=== PATIENT | male | born 1945 | race Two or more races ===

== ENCOUNTER 2019-01-17 02:29 | Emergency (ER) | payer OTHER ==
[~2019-01-17] VITALS: Ht 180.3 cm; Wt 113.4 kg
[2019-01-17 03:19] LABS: Urine Bacteria NONE SEEN /hpf (None Seen); Urine Blood TRACE /uL (Negative); Urine Specific Gravity 1.008 (1.001-1.035); Urine WBC <1 /hpf (0 - 3)
[2019-01-17 03:28] LABS: Albumin 3.5 g/dL (3.4-5.0); Anion Gap 8 (5-15); BUN/Creatinine Ratio 15.5; Blood Urea Nitrogen 18 mg/dL (7-18); Calcium 8.7 mg/dL (8.5-10.1); Carbon Dioxide 25 mmol/L (21-32); Chloride 109 mmol/L (98-107); GFR African American 79 mL/min; GFR Non-African American 65 mL/min; Glucose 80 mg/dL (74-106); INR 1.02 (0.9-1.15); Magnesium 2.1 mg/dL (1.6-2.6); Partial Thromboplastin Time 30.9 sec (23.64-32.05); Potassium 3.2 mmol/L (3.5-5.1); Sodium 142 mmol/L (136-145)
[2019-01-17 03:31] LABS: Basophils # (auto) 0.1 uL; Basophils % (auto) 1.3 % (0.0-2.0); Eosinophils # (auto) 0.1 uL; Hematocrit 41.1 % (41.0-53.0); Hemoglobin 13.9 g/dL (13.5-17.5); Lymphocytes % (auto) 15.9 % (10.0-50.0); Mean Corpuscular Hemoglobin 31.7 pg (28.0-32.0); Mean Corpuscular Hgb Conc. 33.8 g/dL (32.0-36.0); Monocytes # (auto) 0.4 uL; Monocytes % (auto) 5.5 % (0.0-12.0); Neutrophils # (auto) 4.9 uL; Neutrophils % (auto) 76.3 % (37.0-80.0); Platelet Count (auto) 141 10^3/uL (140-450); Red Blood Cells 4.37 10^6/uL (4.5-5.90); Red Cell Distribution Width 14.1 % (11.8-14.3); White Blood Cell 6.5 10^3/uL (4.4-10.8)
[2019-01-17 03:33] LABS: Alanine Aminotransferase 24 U/L (16-61); Alkaline Phosphatase 51 U/L (45-117); Aspartate Aminotransferase 26 U/L (15-37); Bilirubin, Total 0.2 mg/dL (0.2-1.0); Total Protein 6.9 g/dL (6.4-8.2)
[2019-01-17] MEDS ORDERED: POTASSIUM CHL 20 Meq TABLET PO ONE (04:45)
[2019-01-17 05:01] VITALS: BP 141/81
== END 2019-01-17 05:21 | disposition home or self-care (01) ==
LOC: EDBD 02:29 → ER 02:29
DX: E11.649 Type 2 diabetes mellitus with hypoglycemia without coma (principal); R41.82 Altered mental status, unspecified; E87.6 Hypokalemia; E78.5 Hyperlipidemia, unspecified; I10 Essential (primary) hypertension; I48.91 Unspecified atrial fibrillation
CPT/HCPCS: 36415; 80053; 81001; 82962; 83735; 83880; 84484; 85025; 85610; 85730

== ENCOUNTER 2019-01-28 18:55 | Emergency (ER) | payer OTHER ==
[~2019-01-28] VITALS: Ht 160 cm; Wt 93.0 kg
[2019-01-28 20:30] LABS: Basophils # (auto) 0 uL; Basophils % (auto) 0.4 % (0.0-2.0); Eosinophils # (auto) 0 uL; Hematocrit 39.8 % (41.0-53.0); Hemoglobin 13.3 g/dL (13.5-17.5); Lymphocytes # (auto) 0.5 uL; Lymphocytes % (auto) 4.7 % (10.0-50.0); Mean Corpuscular Hemoglobin 31.2 pg (28.0-32.0); Mean Corpuscular Hgb Conc. 33.3 g/dL (32.0-36.0); Mean Corpuscular Volume 93.7 fL (80.0-100.0); Monocytes # (auto) 0.2 uL; Monocytes % (auto) 1.6 % (0.0-12.0); Neutrophils # (auto) 10.7 uL; Neutrophils % (auto) 93.3 % (37.0-80.0); Platelet Count (auto) 184 10^3/uL (140-450); Red Blood Cells 4.25 10^6/uL (4.5-5.90); Red Cell Distribution Width 13.7 % (11.8-14.3); White Blood Cell 11.4 10^3/uL (4.4-10.8)
[2019-01-28 20:34] LABS: INR 1.17 (0.9-1.15); Partial Thromboplastin Time 31.8 sec (23.64-32.05)
[2019-01-28 20:39] LABS: Alanine Aminotransferase 21 U/L (16-61); Albumin 3.5 g/dL (3.4-5.0); Anion Gap 10 (5-15); Aspartate Aminotransferase 20 U/L (15-37); Blood Urea Nitrogen 25 mg/dL (7-18); Calcium 8.2 mg/dL (8.5-10.1); Carbon Dioxide 23 mmol/L (21-32); Chloride 105 mmol/L (98-107); GFR African American 56 mL/min; GFR Non-African American 46 mL/min; Glucose 206 mg/dL (74-106); Potassium 3.3 mmol/L (3.5-5.1); Sodium 138 mmol/L (136-145)
[2019-01-28 20:51] LABS: Alkaline Phosphatase 60 U/L (45-117); Bilirubin, Total 0.8 mg/dL (0.2-1.0); Total Protein 6.7 g/dL (6.4-8.2)
[2019-01-29 03:25] VITALS: BP 120/57
== END 2019-01-29 03:22 | disposition home or self-care (01) ==
LOC: EDBD 18:55 → ER 18:57
DX: I48.91 Unspecified atrial fibrillation (principal); N28.9 Disorder of kidney and ureter, unspecified; I11.0 Hypertensive heart disease with heart failure; I50.9 Heart failure, unspecified; E78.5 Hyperlipidemia, unspecified; Z91.041 Radiographic dye allergy status
CPT/HCPCS: 36415; 71045; 80053; 83880; 84484; 85025; 85610; 85730; 93005

== ENCOUNTER 2024-06-19 12:57 | Emergency (ER) | payer OTHER ==
[~2024-06-19] VITALS: Ht 165.1 cm; Wt 68.2 kg
[2024-06-19 13:04] VITALS: BP 139/89; RESP 18; O2SAT 98
[2024-06-19 13:14] VITALS: PULSE 90
--- NOTE | 2024-06-19 13:42 | ECG ---
[facility] Test Date: 2024-06-19 Test Time: 13:14:35 Pat Name: GRACE CORTEZ Department: er Room: Gender: M Puller Machine: janeth : 1945 Requested By: JOHN CAZARES Order Number: [id number] Reading MD: Measurements Intervals Blair Rate: 90 P: 0 ME: 0 QRS: -76 QRSD: 126 T: 41 QT: 420 QTc: 514 Interpretive Statements Atrial fibrillation Nonspecific IVCD with LAD Borderline T abnormalities, anterior leads Please click the below link to view image of tracing.
--- NOTE | 2024-06-19 13:47 | DVH ---
CHEST RADIOGRAPH Indication: chest pain Technique: Single frontal view of the chest was obtained COMPARISON: None FINDINGS: Lines and Tubes: None Lungs: Clear Pleura: No effusion. No pneumothorax. Cardiomediastinal contours: Mild cardiomegaly Bones: Unremarkable IMPRESSION: 1. Mild cardiomegaly
--- NOTE | 2024-06-19 13:50 | ED.PDOC ---
Back pain HPI HPI Comments 79y M who presents to the ED for chief complaint of upper extremity pain. Pt states she has been having R shoulder pain. Pt states she has been having R shoulder pain for the past 3 days getting worse with pain getting worse as pain has been exacerbated while lifting his shoulder. Pt states this AM, he noticed the pain radiating to the R side of his sternum and called EMS to the scene. EMS arrived on scene and EMS states vitals were stable and and IV was established and pt given IV fluids and pain meds and brought to the ED. Pt in the ED, otherwise denies any fall or trauma. Pt denies any other symptoms at this time. 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 Allergies: Coded Allergies: Iodine I 131 Tositumomab (Verified Allergy, Unknown, 01/17/19) Information Source: Patient Mode of Arrival: EMS Brought in by: EMS Past Medical History PAST MEDICAL HISTORY: AFIB, DM, High Lipids, HTN Surgical History: PTCA, Tonsillectomy Family History Family History: Unknown Social History Smoker: Non-Smoker Alcohol: Denies ETOH Use Drugs: Denies Drug Use Lives In: Home Constitutional: denies: chills, diaphoresis, fatigue, fever, malaise, sweats, weakness, others EENTM: denies: blurred vision, double vision, ear bleeding, ear discharge, ear drainage, ear pain, ear ringing, eye pain, eye redness, hearing loss, mouth pain, mouth swelling, nasal discharge, nose bleeding, nose congestion, nose pain, photophobia, tearing, throat pain, throat swelling, voice changes, others Respiratory: denies: cough, hemoptysis, orthopnea, SOB at rest, shortness of breath, SOB with excertion, stridor, wheezing, others Cardiovascular: denies: chest pain, dizzy spells, diaphoresis, Dyspnea on exertion, edema, irregular heart beat, left arm pain, lightheadedness, palp itations, PND, syncope, others Gastrointestinal: denies: abdomen distended, abdominal pain, blood streaked bowels, constipated, diarrhea, dysphagia, difficulty swallowing, hematemesis, melena, nausea, poor appetite, poor fluid intake, rectal bleeding, rectal pain, vomiting, others Genitourinary: denies: burning, dysuria, flank pain, frequency, hematuria, incontinence, penile discharge, penile sore, pain, testicle pain, testicle swelling, urgency, others Neurological: denies: dizziness, fainting, headache, left sided numbness, left sided weakness, numbness, paresthesia, pre-existing deficit, right sided numbness, right sided weakness, seizure, speech problems, tingling, tremors, weakness, others Musculoskeletal: reports: joint pain; denies: back pain, gout, joint swelling, muscle pain, muscle stiffness, neck pain, others Integumetry: denies: bruises, change in color, change in hair/nails, dryness, laceration, lesions, lumps, rash, wounds, others Allergic/Immunocompromised: denies: Difficulty Healing, Frequent Infections, Hives, Itching, others Hematologic/Lymphatic: denies: anemia, blood clots, easy bleeding, easy bruising, swollen glands, others Endocrine: denies: excessive hunger, excessive sweating, excessive thirst, excessive urination, flushing, intolerance to cold, intolerance to heat, unexplained weight gain, unexplained weight loss, others Psychiatric: denies: anxiety, bipolar disorder, depression, hopeless, panic disorder, schizophrenia, sleepless, suicidal, others All Other Systems: Reviewed and Negative Physical Exam General Appearance: Mild Distress, Normal HEENT: Normal ENT Inspection, Pharynx Normal, TMs Normal Neck: Full Range of Motion, Non-Tender, Normal, Normal Inspection Respiratory: Chest Non-Tender, Lungs Clear, No Accessory Muscle Use, No Respiratory Distress, Normal Breath Sounds Cardiovascular: No Edema, No JVD, No Murmur, No Gallop, Normal Peripheral Pulses, Regular Rate/Rhythm Breast Exam: Deferred Gastrointestinal: No Organomegaly, Non Tender, No Pulsatile Mass, Normal Bowel Sounds, Soft Genitalia: Deferred Pelvic: Deferred Rectal: Deferred Extremities: Tender (left shoulder) Musculoskeletal : Apperance: Normal Neurologic: Alert, 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 Was a procedure done?: No Back Pain Differential Dx Differential Diagnosis: Fracture, Musculoskeletal Pain Other Differential Diagnosis chest wall pain, muslce spasm, strain, dislocation, arthritis X-Ray, Labs, Meds, VS Vital Signs Date Time Temp Pulse Resp B/P (MAP) Pulse Ox O2 Delivery O2 Flow Rate FiO2 06/19/24 13:14 90 06/19/24 13:05 Room Air* 0 21 06/19/24 13:04 98.0 91 18 139/89 (106) 98 Lab Test 06/19/24 14:53 06/19/24 13:37 Range/Units Troponin I High Sensitivity 4 4 </=54 ng/L White Blood Count 7.4 4.4-10.8 10^3/uL Red Blood Count 4.74 4.5-5.90 10^6/uL Hemoglobin 14.9 13.5-17.5 g/dL Hematocrit 44.3 41.0-53.0 % Mean Corpuscular Volume 93.5 80.0-100.0 fL Mean Corpuscular Hemoglobin 31.3 28.0-32.0 pg Mean Corpuscular Hemoglobin Concent 33.5 32.0-36.0 g/dL Red Cell Distribution Width 14.2 11.8-14.3 % Platelet Count 181 140-450 10^3/uL Mean Platelet Volume 9.2 6.9-10.8 fL Neutrophils (%) (Auto) 68.6 37.0-80.0 % Lymphocytes (%) (Auto) 22.5 10.0-50.0 % Monocytes (%) (Auto) 6.2 0.0-12.0 % Eosinophils (%) (Auto) 1.2 0.0-7.0 % Basophils (%) (Auto) 1.5 0.0-2.0 % Neutrophils # (Auto) 5.1 1.6-8.6 10 ^3/uL Lymphocytes # (Auto) 1.7 0.4-5.4 10 ^3/uL Monocytes # (Auto) 0.5 0-1.3 10 ^3/uL Eosinophils # (Auto) 0.1 0-0.8 10 ^3/uL Basophils # (Auto) 0.1 0-0.2 10 ^3/uL Nucleated Red Blood Cells 0.1 % Prothrombin Time 13.2 H 9.3-11.8 sec Prothrombin Time INR 1.28 H 0.9-1.15 Activated Partial Thromboplast Time 43.2 H 24.5-34.5 SEC Sodium Level 141 136-145 mmol/L Potassium Level 4.3 3.5-5.1 mmol/L Chloride Level 105 98-107 mmol/L Carbon Dioxide Level 31 20-31 mmol/L Anion Gap 5 5-15 Blood Urea Nitrogen 19 9-23 mg/dL Creatinine 1.44 H 0.700-1.30 mg/dL Glomerular Filtration Rate Calc 49 >90 mL/min BUN/Creatinine Ratio 13.2 10.0-20.0 Serum Glucose 185 H 74-106 mg/dL Calcium Level 9.4 8.7-10.4 mg/dL Total Bilirubin 0.8 0.2-1.0 mg/dL Aspartate Amino Transferase (AST) 28 13-40 U/L Alanine Aminotransferase (ALT) 21 7-40 U/L Alkaline Phosphatase 85 46-116 U/L B-Type Natriuretic Peptide 171.97 0-100 pg/mL Total Protein 6.6 5.7-8.2 g/dL Albumin 4.1 3.2-4.8 g/dL [place] [address] Ph: [phone] DIAGNOSTIC IMAGING Diagnostic Imaging Report : [id number] Signed PATIENT: GRACE CORTEZ ACCT: [id number] UNIT: [id number] : 1945 LOC: ER ROOM / BED: / AGE / SEX: 79 / M ADM STATUS: REG ER SERVICE 1314 ORDERING PHYSICIAN: JOHN CAZARES MD PROCEDURE(s): CXRP - CHEST PORTABLE REASON: chest pain ORDER NUMBER(s): [id number], ACCESSION NUMBER(s): [id number] CHEST RADIOGRAPH Indication: chest pain Technique: Single frontal view of the chest was obtained COMPARISON: None FINDINGS: Lines and Tubes: None Lungs: Clear Pleura: No effusion. No pneumothorax. Cardiomediastinal contours: Mild cardiomegaly Bones: Unremarkable IMPRESSION: 1. Mild cardiomegaly ATED BY: KENIA YEPEZ MD DICTATED DATE/TIME: 06/19/241343 SIGNED BY: KENIA YEPEZ MD SIGNED DATE/TIME: 06/19/24 134 CC: [place] [id number] Ph: [phone] DIAGNOSTIC IMAGING Diagnostic Imaging Report : [id number] Signed PATIENT: GRACE CORTEZ ACCT: [id number] UNIT: [id number] : 1945 LOC: ER ROOM / BED: / AGE / SEX: 79 / M ADM STATUS: REG ER SERVICE 1314 ORDERING PHYSICIAN: JOHN CAZARES MD PROCEDURE(s): RSHD2 - R SHOULDER 2+ VIEW XRAY REASON: pain no trauma ORDER NUMBER(s): [id number], ACCESSION NUMBER(s): [id number] CLINICAL INDICATION: pain no trauma TECHNIQUE: XY R SHOULDER 2+ VIEW XRAY Comparison: None FINDINGS/IMPRESSION: : There are small calcifications adjacent to the humeral head suggestive of calcific tendonitis. No fracture No dislocation Degenerative changes of the acromioclavicular joint Impression: Findings suggestive of calcific tendonitis ATED BY: KENIA YEPEZ MD DICTATED DATE/TIME: 06/19/24 134 SIGNED BY: KENIA YEPEZ MD SIGNED DATE/TIME: 06/19/24 134 CC: Time of 1ST Reevaluation: 14:20 Reevaluation 1ST: Unchanged Time of 2ND Reevaluation: 15:00 Reevaluation 2ND: Improved Patient Education/Counseling: Diagnosis, Treatment Family Education/Counseling: No Family Present Departure 1 Departure Time of Disposition: 15:00 Impression: Primary Impression: Atypical chest pain Additional Impression: Left shoulder tendonitis Disposition: 01 HOME / SELF CARE / HOMELESS Condition: Stable Discharged With: Self Critical Care Note Critical Care Time?: No Stability Stability form required: No Heart Score Heart Score: Heart Score Response (Comments) Value History Slightly Suspicious 0 EKG Normal 0 Age >65 2 Risk Factors 1 or 2 risk factors 1 Troponin Normal limit 0 Total 3 I personally scribed for JOHN CAZARES MD ([email or web address]) on 06/19/24 at 13:50. Electronically submitted by Annalisa Garibay ([email or web address]). I personally scribed for JOHN CAZARES MD ([email or web address]) on 06/19/24 at 13:52. Electronically submitted by Annalisa Garibay ([email or web address]). JOHN CAZARES MD Jun 19, 2024 13:50
[2024-06-19 14:04] LABS: Basophils # (auto) 0.1 10 ^3/uL (0-0.2); Basophils % (auto) 1.5 % (0.0-2.0); Eosinophils # (auto) 0.1 10 ^3/uL (0-0.8); Eosinophils % (auto) 1.2 % (0.0-7.0); Hematocrit 44.3 % (41.0-53.0); Hemoglobin 14.9 g/dL (13.5-17.5); Lymphocytes # (auto) 1.7 10 ^3/uL (0.4-5.4); Lymphocytes % (auto) 22.5 % (10.0-50.0); Mean Corpuscular Hemoglobin 31.3 pg (28.0-32.0); Mean Corpuscular Hgb Conc. 33.5 g/dL (32.0-36.0); Mean Corpuscular Volume 93.5 fL (80.0-100.0); Monocytes # (auto) 0.5 10 ^3/uL (0-1.3); Monocytes % (auto) 6.2 % (0.0-12.0); Neutrophils # (auto) 5.1 10 ^3/uL (1.6-8.6); Neutrophils % (auto) 68.6 % (37.0-80.0); Nucleated Red Blood Cells % 0.1 %; Platelet Count (auto) 181 10^3/uL (140-450); Red Blood Cells 4.74 10^6/uL (4.5-5.90); Red Cell Distribution Width 14.2 % (11.8-14.3); White Blood Cell 7.4 10^3/uL (4.4-10.8)
[2024-06-19 14:17] LABS: INR 1.28 (0.9-1.15); Partial Thromboplastin Time 43.2 SEC (24.5-34.5); Prothrombin Time 13.2 sec (9.3-11.8)
[2024-06-19 14:34] LABS: Alanine Aminotransferase 21 U/L (7-40); Albumin 4.1 g/dL (3.2-4.8); Alkaline Phosphatase 85 U/L (46-116); Anion Gap 5 (5-15); Aspartate Aminotransferase 28 U/L (13-40); BUN/Creatinine Ratio 13.2 (10.0-20.0); Bilirubin, Total 0.8 mg/dL (0.2-1.0); Blood Urea Nitrogen 19 mg/dL (9-23); Calcium 9.4 mg/dL (8.7-10.4); Carbon Dioxide 31 mmol/L (20-31); Chloride 105 mmol/L (98-107); Potassium 4.3 mmol/L (3.5-5.1); Sodium 141 mmol/L (136-145); Total Protein 6.6 g/dL (5.7-8.2)
[2024-06-19 14:38] LABS: Glucose 185 mg/dL (74-106)
== END 2024-06-19 16:36 | disposition home or self-care (01) ==
LOC: EDBD 12:57 → ER 12:57
DX: M77.8 Other enthesopathies, not elsewhere classified (principal); R07.89 Other chest pain; E11.9 Type 2 diabetes mellitus without complications; E78.5 Hyperlipidemia, unspecified; I10 Essential (primary) hypertension; Z98.890 Other specified postprocedural states; Z88.8 Allergy status to other drugs, medicaments and biological substances
CPT/HCPCS: 36415; 71045; 73030; 80053; 83880; 84484; 85025; 85610; 85730; 93005

== ENCOUNTER 2025-02-23 01:48 | Inpatient (IN) | payer OTHER ==
[~2025-02-23] VITALS: Ht 167.6 cm; Wt 109.0 kg
--- NOTE | 2025-02-23 02:05 | ED.PDOC ---
Altered Mental Status HPI Comments 79-year-old male who came to ER via EMS for hypoglycemia/altered level of consciousness. Per EMS, patient has history of hypertension and diabetes. Takes insulin for his diabetes. Was noted by family members that patient has been acting altered, confused, diaphoretic. Paramedics came noted blood sugar levels of 37 so patient was given fluids and it improved to 154. 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 Allergies: Coded Allergies: Iodine I 131 Tositumomab (Verified Allergy, Unknown, 01/17/19) Information Source: Patient, Emergency Med Personnel Mode of Arrival: EMS Severity: Severe, Unable to Care for Self Timing: Hours Duration: Since onset Prehospital treatment: IVF Quality: Decreased Alertness, Change in Behavior, Confusion Recent: Medication/Drug Abuse History of: Diabetes, On Insulin Past Medical History PAST MEDICAL HISTORY: AFIB, DM, High Lipids, HTN Surgical History: PTCA, Tonsillectomy Family History Family History: Pt Confused Social History Smoker: Pt Confused Alcohol: Pt Confused Drugs: Pt Confused Lives In: Home Unable to Obtain due to: Altered Mental Status (Hypoglycemic) Physical Exam General Appearance: No Apparent Distress, Normal HEENT: Normal ENT Inspection, Pharynx Normal, TMs Normal Neck: Full Range of Motion, Non-Tender, Normal, Normal Inspection Respiratory: Chest Non-Tender, Lungs Clear, No Accessory Muscle Use, No Respiratory Distress, Normal Breath Sounds Cardiovascular: No Edema, No JVD, No Murmur, No Gallop, Normal Peripheral Pulses, Regular Rate/Rhythm Breast Exam: Deferred Gastrointestinal: No Organomegaly, Non Tender, No Pulsatile Mass, Normal Bowel Sounds, Soft Genitalia: Deferred Pelvic: Deferred Rectal: Deferred Extremities: No calf tenderness, Normal capillary refill, Normal inspection, Normal range of motion, Non-tender, No pedal edema Musculoskeletal : Apperance: Normal Neurologic: Alert, hoistman II-XII nml as Tested, No Motor Deficits, Normal Affect, Normal Mood, No Sensory Deficits Cerebellar Function: Normal Reflexes: Normal Skin: Dry, Normal Color, Warm Lymphatic: No Adenopathy EKG EKG : Pulse Rate (adult): 46 Cardiac Rhythm: Afib Comments Left anterior fascicular block Was a procedure done? Was a procedure done?: No Differential Diagnosis (ALOC) Differential Diagnosis: Hypoglycemia, Encephalopathy, Hypoxemia, CVA X-Ray, Labs, Meds, VS Vital Signs Date Time Temp Pulse Resp B/P (MAP) Pulse Ox O2 Delivery O2 Flow Rate FiO2 02/23/25 02:31 61 10 96 Room Air* 0 21 02/23/25 02:31 97.7 61 10 136/72 (93) 96 97.7 02/23/25 02:05 46 02/23/25 01:57 97.7 63 20 110/51 95 97.7 02/23/25 01:53 46 Lab Test 02/23/25 02:46 02/23/25 02:43 02/23/25 02:10 Range/Units POC Glucose 100 70-106 mg/dl Urine Color Pending Urine Clarity Pending Urine pH Pending Urine Specific [place] Pending Urine Protein Pending Urine Ketones Pending Urine Blood Pending Urine Nitrite Pending Urine Bilirubin Pending Urine Urobilinogen Pending Urine Leukocyte Esterase Pending Urine RBC Pending Urine Microscopic WBC Pending Urine Squamous Epithelial Cells Pending Urine Bacteria Pending Urine Glucose Pending Urine Opiates Screen Neg NEGATIVE Urine Fentanyl Screen Neg NEGATIVE Urine Barbiturates Screen Neg NEGATIVE Urine Phencyclidine Screen Neg NEGATIVE Urine Amphetamines Screen Neg NEGATIVE Urine Benzodiazepines Screen Neg NEGATIVE Urine Cocaine Screen Neg NEGATIVE Urine Cannabinoids Screen Neg NEGATIVE White Blood Count 6.6 4.4-10.8 10^3/uL Red Blood Count 4.42 L 4.5-5.90 10^6/uL Hemoglobin 14.0 13.5-17.5 g/dL Hematocrit 41.5 41.0-53.0 % Mean Corpuscular Volume 93.8 80.0-100.0 fL Mean Corpuscular Hemoglobin 31.6 28.0-32.0 pg Mean Corpuscular Hemoglobin Concent 33.6 32.0-36.0 g/dL Red Cell Distribution Width 13.9 11.8-14.3 % Platelet Count 176 140-450 10^3/uL Mean Platelet Volume 9.2 6.9-10.8 fL Neutrophils (%) (Auto) 64.3 37.0-80.0 % Lymphocytes (%) (Auto) 26.3 10.0-50.0 % Monocytes (%) (Auto) 7.1 0.0-12.0 % Eosinophils (%) (Auto) 1.3 0.0-7.0 % Basophils (%) (Auto) 1.0 0.0-2.0 % Neutrophils # (Auto) 4.2 1.6-8.6 10 ^3/uL Lymphocytes # (Auto) 1.7 0.4-5.4 10 ^3/uL Monocytes # (Auto) 0.5 0-1.3 10 ^3/uL Eosinophils # (Auto) 0.1 0-0.8 10 ^3/uL Basophils # (Auto) 0.1 0-0.2 10 ^3/uL Nucleated Red Blood Cells 0.1 % Sodium Level 143 136-145 mmol/L Potassium Level 3.5 3.5-5.1 mmol/L Chloride Level 105 98-107 mmol/L Carbon Dioxide Level 29 20-31 mmol/L Anion Gap 9 5-15 Blood Urea Nitrogen 17 9-23 mg/dL Creatinine 1.40 H 0.700-1.30 mg/dL Glomerular Filtration Rate Calc 51 >90 mL/min BUN/Creatinine Ratio 12.1 10.0-20.0 Serum Glucose 148 H 74-106 mg/dL Calcium Level 8.3 L 8.7-10.4 mg/dL Magnesium Level 2.2 1.6-2.6 mg/dL Total Bilirubin 0.3 0.2-1.0 mg/dL Aspartate Amino Transferase (AST) 33 13-40 U/L Alanine Aminotransferase (ALT) 15 7-40 U/L Alkaline Phosphatase 65 46-116 U/L Total Protein 6.7 5.7-8.2 g/dL Albumin 3.9 3.2-4.8 g/dL Plasma/Serum Blood Alcohol < 3.0 <10 mg/dL Time of 1ST Reevaluation: 02:01 Reevaluation 1ST: Unchanged Patient Education/Counseling: Diagnosis, Treatment Family Education/Counseling: No Family Present SEPSIS Sepsis Screen Physician Orders Electrocardigram (02/23/25 01:56) Chest Portable (02/23/25 01:58) Urinalysis (02/23/25 01:58) Blood Glucose Q2h (02/23/25 01:58) Head Without Contrast (02/23/25 01:58) Vital Signs Date Time Temp Pulse Resp B/P (MAP) Pulse Ox O2 Delivery O2 Flow Rate FiO2 02/23/25 02:31 61 10 96 Room Air* 0 21 02/23/25 02:31 97.7 61 10 136/72 (93) 96 97.7 02/23/25 02:05 46 02/23/25 01:57 97.7 63 20 110/51 95 97.7 02/23/25 01:53 46 Laboratory Tests Test 02/23/25 02:10 White Blood Count 6.6 10^3/uL (4.4-10.8) Departure 1 Departure Time of Disposition: 04:10 Impression: Primary Impression: Metabolic encephalopathy Additional Impressions: Acute renal injury Hypoglycemia Disposition: ADMITTED INPATIENT Admit to: Med Surg Condition: Guarded Comments 79-year-old male with a history of hypertension and diabetes now presents by EMS with confusion after noted to be hypoglycemic at home. CT to of the head shows degenerative changes. Creatinine is elevated at 1.4 consistent with acute renal injury. Patient was given IV fluids. Patient will need to be admitted for acute renal injury and hypoglycemia with type 2 diabetes Critical Care Note Critical Care Time?: Yes (35 min-critical care time only) Critical care comment: Hypoglycemia, altered level of consciousness Total critical care time: Approximately 36 minutes Due to a high probability of clinically significant, life threatening deterioration, the patient required my highest level of preparedness to intervene emergently and I personally spent this critical care time directly and personally managing the patient. This critical care time included obtaining a history; examining the patient; pulse oximetry; ordering and review of studies; arranging urgent treatment with development of a management plan; evaluation of patient's response to treatment; frequent reassessment; and, discussions with ot her providers. This critical care time was performed to assess and manage the high probability of imminent, life-threatening deterioration that could result in multi-organ failure. It was exclusive of separately billable procedures and treating other patients. Stability Stability form required: No Heart Score Heart Score: Heart Score Response (Comments) Value History N/A 0 EKG N/A 0 Age N/A 0 Risk Factors N/A 0 Troponin N/A 0 Total 0 I personally scribed for JOHN CAZARES MD ([email or web address]) on 02/23/25 at 02:05. Electronically submitted by Sony Weaver ([email or web address]). JOHN CAZARES MD Feb 23, 2025 02:05
[2025-02-23 02:31] VITALS: PULSE 61; RESP 10; O2SAT 96
[2025-02-23 02:53] LABS: Hematocrit 41.5 % (41.0-53.0); Hemoglobin 14.0 g/dL (13.5-17.5); Mean Corpuscular Hemoglobin 31.6 pg (28.0-32.0); Mean Corpuscular Volume 93.8 fL (80.0-100.0); Nucleated Red Blood Cells % 0.1 %
--- NOTE | 2025-02-23 03:13 | DVH ---
CHEST RADIOGRAPH Indication: SOB Technique: Single frontal view of the chest was obtained COMPARISON: XY CHEST PORTABLE on DOS: 06/19/24 FINDINGS: Lines and Tubes: None Lungs: Clear. Minimal right basilar atelectasis. Pleura: No effusion. No pneumothorax. Cardiomediastinal contours: Cardiomegaly. Bones: Unremarkable IMPRESSION: 1. Cardiomegaly.
--- NOTE | 2025-02-23 03:15 | DVH ---
EXAM: CT HEAD WITHOUT CONTRAST INDICATION: ALOC TECHNIQUE: CT of the head without intravenous contrast. Radiation Dose : 1. Head: CT Dose: CTDI volume is 63.66 mGy. Dose-length product is 893.01 mGy*cm The dose indicators for CT are the volume Computed Tomography (CT) Dose Index (CTDIvol) and the Dose Length Product (DLP), and are measured in units of mGy and mGy-cm, respectively. These indicators are not patient dose, but values generated from the CT scanner acquisition factors. The report includes radiation exposure data for exposures received during this examination. COMPARISON: None FINDINGS: There is no evidence of acute intracranial hemorrhage, extra-axial collection, mass effect, midline s hift, herniation or hydrocephalus. Increased prominence of the ventricles, sulci and cisterns consistent with the sequelae of atrophic c ortical volume loss. The vazquez-white differentiation is intact. Moderate diffuse confluent periventricular and subcortical white matter hypoattenuation is nonspecifi c but may be related to small vessel ischemic disease. Minimal diffuse mucosal thickening of the visualized paranasal sinuses. Chronic appearing scarring of the bilateral mastoid air cells. The surrounding soft tissues and osseous structures are unremarkable. IMPRESSION: 1. No acute intracranial abnormality. 2. Chronic sequelae of microangiopathy and atrophic cortical volume loss. Radiation optimization: All CT scans at this facility use at least one of these dose optimization matthew hniques: automated exposure control mA and/or kV adjustment per patient size (includes targeted exam s where dose is matched to clinical indication) or iterative reconstruction.
[2025-02-23 03:37] LABS: Alanine Aminotransferase 15 U/L (7-40); Albumin 3.9 g/dL (3.2-4.8); Alkaline Phosphatase 65 U/L (46-116); Anion Gap 9 (5-15); BUN/Creatinine Ratio 12.1 (10.0-20.0); Bilirubin, Total 0.3 mg/dL (0.2-1.0); Blood Urea Nitrogen 17 mg/dL (9-23); Carbon Dioxide 29 mmol/L (20-31); Chloride 105 mmol/L (98-107); Magnesium 2.2 mg/dL (1.6-2.6); Sodium 143 mmol/L (136-145); Total Protein 6.7 g/dL (5.7-8.2)
[2025-02-23 03:50] LABS: Calcium 8.3 mg/dL (8.7-10.4); Glucose 148 mg/dL (74-106); Potassium 3.5 mmol/L (3.5-5.1)
[2025-02-23 03:51] LABS: Amphetamine Screen, Urine Neg (NEGATIVE); Barbiturate Scree,Urine Neg (NEGATIVE); Benzodiazephine Screen, Urine Neg (NEGATIVE); Cannabinoid Screen, Urine Neg (NEGATIVE); Cocaine Screen, Urine Neg (NEGATIVE); Opiate Scree,Urine Neg (NEGATIVE); Phencyclidine Screen, Urine Neg (NEGATIVE)
[2025-02-23 04:05] LABS: Urine Protein, UAD Negative (Negative)
--- NOTE | 2025-02-23 07:56 | DVHHP2 ---
History of Present Illness Reason for Visit: ALOC History of Present Illness Matthias Alvarez is a 79-year-old male with past medical history of hypertension, diabetes, AFib, hyperlipidemia, PTCA, and tonsillectomy who presents to the ED with altered level of consciousness per family. Reports that patient does take insulin for his diabetes but family members have been stating that he has been acting confused diaphoretic and altered. Per notes from EMS blood sugar at 37 given IV fluids and improved to 154. Patient is hard of hearing. At bedside patient is able to tell me his month and day of his birthday have but not the year. Patient is able to report me his name 1st and last, where he is at but unable to tell me the name of the facility. Patient reports that he is taking his medications but does not recall the names. Patient denies coughing up any phlegm, denies recent trauma or injury, denies recent sick contacts, denies recent travels, chest pain, shortness of breath, fever, chills, lightheadedness, weakness, dizziness, abdominal pain, nausea, vomiting, diarrhea, or urinary symptoms. Patient reports that he ambulates and does not use any DMEs. Cardiovascular: AFIB, HTN, hyperipidemia Endocrine: Diabetes Past Surgical History: Other (PTCA), Tonsillectomy Family History: Other (Both parents ) Smoke: No ALCOHOL: occassional Drugs: None Lives: with Family Domestic Violence: Neg Review of Systems Constitutional: Yes: Other Neurological: Confusion Allergies: Coded Allergies: Iodine I 131 Tositumomab (Verified Allergy, Unknown, 01/17/19) Exam Vital Signs Vital Signs Date Time Temp Pulse Resp B/P (MAP) Pulse Ox O2 Delivery O2 Flow Rate FiO2 02/23/25 04:00 58 18 109/53 (71) 95 02/23/25 02:31 Room Air* 0 21 02/23/25 02:31 97.7 97.7 General Appearance: Alert, Cooperative, No acute distress HEENT: Atraumatic, PERRLA, EOMI, Mucous membr. moist/pink Respiratory: Clear to auscultation, Normal air movement Cardiovascular: Normal S1, Normal S2, No murmurs Abdominal: Normal bowel sounds, Soft Extremities: Normal pulses Skin: No significant lesion Neuro: Normal speech, Strength at 5/5 X4 ext, Normal tone, Sensation intact Psych/Mental Status: Mental status NL, Mood NL Labs/Xrays Labs Test 02/23/25 05:33 02/23/25 02:43 02/23/25 02:10 Range/Units POC Glucose 118 H 70-106 mg/dl Urine Color Light-yellow Yellow Urine Clarity Clear Clear Urine pH 6.0 5.0-9.0 Urine Specific [place] 1.012 1.001-1.035 Urine Protein Negative Negative Urine Ketones Negative Negative Urine Blood Negative Negative /uL Urine Nitrite Negative Negative Urine Bilirubin Negative Negative Urine Urobilinogen Normal Negative mg/dL Urine Leukocyte Esterase Negative Negative /uL Urine RBC 1 0 - 3 /hpf Urine Microscopic WBC < 1 0-3 /HPF Urine Squamous Epithelial Cells Few <5 /hpf Urine Bacteria None seen None Seen /hpf Urine Glucose Normal Normal mg/dL Urine Opiates Screen Neg NEGATIVE Urine Fentanyl Screen Neg NEGATIVE Urine Barbiturates Screen Neg NEGATIVE Urine Phencyclidine Screen Neg NEGATIVE Urine Amphetamines Screen Neg NEGATIVE Urine Benzodiazepines Screen Neg NEGATIVE Urine Cocaine Screen Neg NEGATIVE Urine Cannabinoids Screen Neg NEGATIVE White Blood Count 6.6 4.4-10.8 10^3/uL Red Blood Count 4.42 L 4.5-5.90 10^6/uL Hemoglobin 14.0 13.5-17.5 g/dL Hematocrit 41.5 41.0-53.0 % Mean Corpuscular Volume 93.8 80.0-100.0 fL Mean Corpuscular Hemoglobin 31.6 28.0-32.0 pg Mean Corpuscular Hemoglobin Concent 33.6 32.0-36.0 g/dL Red Cell Distribution Width 13.9 11.8-14.3 % Platelet Count 176 140-450 10^3/uL Mean Platelet Volume 9.2 6.9-10.8 fL Neutrophils (%) (Auto) 64.3 37.0-80.0 % Lymphocytes (%) (Auto) 26.3 10.0-50.0 % Monocytes (%) (Auto) 7.1 0.0-12.0 % Eosinophils (%) (Auto) 1.3 0.0-7.0 % Basophils (%) (Auto) 1.0 0.0-2.0 % Neutrophils # (Auto) 4.2 1.6-8.6 10 ^3/uL Lymphocytes # (Auto) 1.7 0.4-5.4 10 ^3/uL Monocytes # (Auto) 0.5 0-1.3 10 ^3/uL Eosinophils # (Auto) 0.1 0-0.8 10 ^3/uL Basophils # (Auto) 0.1 0-0.2 10 ^3/uL Nucleated Red Blood Cells 0.1 % Sodium Level 143 136-145 mmol/L Potassium Level 3.5 3.5-5.1 mmol/L Chloride Level 105 98-107 mmol/L Carbon Dioxide Level 29 20-31 mmol/L Anion Gap 9 5-15 Blood Urea Nitrogen 17 9-23 mg/dL Creatinine 1.40 H 0.700-1.30 mg/dL Glomerular Filtration Rate Calc 51 >90 mL/min BUN/Creatinine Ratio 12.1 10.0-20.0 Serum Glucose 148 H 74-106 mg/dL Calcium Level 8.3 L 8.7-10.4 mg/dL Magnesium Level 2.2 1.6-2.6 mg/dL Total Bilirubin 0.3 0.2-1.0 mg/dL Aspartate Amino Transferase (AST) 33 13-40 U/L Alanine Aminotransferase (ALT) 15 7-40 U/L Alkaline Phosphatase 65 46-116 U/L Total Protein 6.7 5.7-8.2 g/dL Albumin 3.9 3.2-4.8 g/dL Plasma/Serum Blood Alcohol < 3.0 <10 mg/dL EXAM: CT HEAD WITHOUT CONTRAST INDICATION: ALOC TECHNIQUE: CT of the head without intravenous contrast. Radiation Dose : 1. Head: CT Dose: CTDI volume is 63.66 mGy. Dose-length product is 893.01 mGy*cm The dose indicators for CT are the volume Computed Tomography (CT) Dose Index (CTDIvol) and the Dose Length Product (DLP), and are measured in units of mGy and mGy-cm, respectively. These indicators are not patient dose, but values generated from the CT scanner acquisition factors. The report includes radiation exposure data for exposures received during this examination. COMPARISON: None FINDINGS: There is no evidence of acute intracranial hemorrhage, extra-axial collection, mass effect, midline shift, herniation or hydrocephalus. Increased prominence of the ventricles, sulci and cisterns consistent with the sequelae of atrophic cortical volume loss. The vazquez-white differentiation is intact. Moderate diffuse confluent periventricular and subcortical white matter hypoattenuation is nonspecific but may be related to small vessel ischemic disease. Minimal diffuse mucosal thickening of the visualized paranasal sinuses. Chronic appearing scarring of the bilateral mastoid air cells. The surrounding soft tissues and osseous structures are unremarkable. IMPRESSION: 1. No acute intracranial abnormality. 2. Chronic sequelae of microangiopathy and atrophic cortical volume loss. CHEST RADIOGRAPH Indication: SOB Technique: Single frontal view of the chest was obtained COMPARISON: XY CHEST PORTABLE on DOS: 06/19/24 FINDINGS: Lines and Tubes: None Lungs: Clear. Minimal right basilar atelectasis. Pleura: No effusion. No pneumothorax. Cardiomediastinal contours: Cardiomegaly. Bones: Unremarkable IMPRESSION: 1. Cardiomegaly. SEPSIS Sepsis Screen Date sepsis recognized/suspect: Feb 23, 2025 Time Sepsis recognized/suspect: 020 Recent Procedure: No On Antibiotic Therapy: No Respiratory Rate >20: No Heart Rate >90: No Temp<36 C (96.8 F) or >38.3 C: No SBP <90 or MAP <65 mmHG: No New Acute Mental Status Change: No Is the patient on CPAP, BIPAP,: No Physician Orders Electrocardigram (02/23/25 01:56) Chest Portable (02/23/25 01:58) Blood Glucose Q2h (02/23/25 01:58) Head Without Contrast (02/23/25 01:58) Check Blood Glucose (02/23/25 05:30) Electrocardigram (02/23/25 07:48) Ammonia (02/23/25 07:48) Admit (02/23/25 07:48) Allergies (02/23/25 07:48) Code Status (02/23/25 07:48) Ondansetron Hcl (Zofran) (02/23/25 08:00) Vital Signs Date Time Temp Pulse Resp B/P (MAP) Pulse Ox O2 Delivery O2 Flow Rate FiO2 02/23/25 04:00 58 18 109/53 (71) 95 02/23/25 03:00 53 131/67 (88) 97 02/23/25 02:31 61 10 96 Room Air* 0 21 02/23/25 02:31 97.7 61 10 136/72 (93) 96 97.7 02/23/25 02:05 46 02/23/25 01:57 97.7 63 20 110/51 95 97.7 02/23/25 01:53 46 Laboratory Tests Test 02/23/25 02:10 White Blood Count 6.6 10^3/uL (4.4-10.8) Assessment/Plan Assessment/Plan Assessment Acute encephalopathy Hypoglycemia Hard of hearing CHRISTINE likely prerenal Possible pneumonia Alcohol use Obesity History of diabetes History of hypertension History of AFib History of hyperlipidemia History of PTCA History of tonsillectomy Plan Admit to med surge -upgraded to tele AFib 46-57 on monitor Hemoglobin A1c ISS and Accu-Cheks CT head noted UDS Mag level UA negative noted Chest x-ray noted EKG Ammonia level ESR CRP Lactic level Diltiazem IV antibiotics-ceftriaxone BNP Diurese Influenza test COVID test Diet Home medications reconciled DVT prophylaxis-Lovenox PUD prophylaxis-not indicated history of GERD or GI bleed Discussed plan of care with patient and nurse Patient on dabigatran at home- rounding hospitalist to continue once appropriate Counseled patient on cessation of alcohol use Counseled patient on lifestyle modifications, diet, and exercise [id number] Preventive counseling healthy eating habits, physical activity, and regular checkups Plan discussed with: Patient My Orders Orders - DANITZA HAGER Procedure Category Date Status Time Electrocardigram EKG 02/23/25 Verified 07:48 Ammonia LAB 02/23/25 Verified 07:48 Admit ADMIT 02/23/25 Verified 07:48 Allergies FABIAN 02/23/25 Verified 07:48 Code Status CODE 02/23/25 Verified 07:48 Ondansetron Hcl PHA 02/23/25 Verified (Zofran) 08:00 Date of Service: Feb 23, 2025 Billing Provider: DANITZA HAGER Common Visit Codes: [id number] INP/OBS CARE (HIGH) Secondary Visit Codes: [id number] COUNSELING IND DANITZA HAGER Feb 23, 2025 07:56
[2025-02-23] MEDS ORDERED: ATOR20TA50 PO (07:57)
[2025-02-23] MEDS ORDERED: MEMA1TAB5 PO (07:57)
[2025-02-23] MEDS ORDERED: BISO10TA31 PO (07:57)
[2025-02-23] MEDS ORDERED: TAMS0.4C39 PO (07:57)
[2025-02-23] MEDS ORDERED: MIRT1TAB38 PO (07:57)
[2025-02-23] MEDS ORDERED: LISI2.5T47 PO (07:57)
[2025-02-23] MEDS ORDERED: DILT30TA PO (07:57)
[2025-02-23] MEDS ORDERED: DEXTROSE (50%) 50ML SYRG IV PRN (08:00)
[2025-02-23] MEDS ORDERED: ACETAMINOPHEN 325 MG TAB PO PRN (08:00)
[2025-02-23] MEDS ORDERED: ONDANSETRON HCL 4 MG/2 ML VIAL IV PRN (08:00)
[2025-02-23] MEDS ORDERED: ATORVASTATIN 20 MG TAB PO SCH ×2 (10:00→22:00)
[2025-02-23] MEDS: MEMANTINE HCL 5 MG TAB PO SCH (10:42)
[2025-02-23] MEDS: FUROSEMIDE 40 MG/4 ML VIAL IV SCH (10:42)
[2025-02-23] MEDS: LISINOPRIL 5 MG TAB PO SCH (10:42)
[2025-02-23] MEDS: ENOXAPARIN SOD 40 MG/0.4 ML SYRINGE SC SCH (10:43)
--- NOTE | 2025-02-23 11:34 | DVHPN2 ---
Progress Note Date Seen: Feb 23, 2025 Medical Necessity Reason Pt with a Central, PICC or Fol: No Subjective Patient reports: No new complaints Review of Systems: HEENT:Normal, CVS:Normal, RESPIRATORY:Normal, GI:Normal, :Normal, MSK:Normal, NEURO:Normal Objective vital signs Vital Sign Date Time Temp Pulse Resp B/P (MAP) Pulse Ox O2 Delivery O2 Flow Rate FiO2 02/23/25 10:42 151/68 02/23/25 09:30 98.2 72 19 93 98.2 02/23/25 09:11 Room Air* 0 21 medications Current Medications Medications Dose Ordered Sig/Kaia Route Start Time Stop Time Status Last Admin Dose Admin Ondansetron HCl 4 mg Q4HP PRN IV 02/23/25 08:00 Enoxaparin Sodium 40 mg DAILY SC 02/23/25 10:00 02/23/25 10:43 40 MG Acetaminophen 650 mg Q6HP PRN PO 02/23/25 08:00 Ceftriaxone Sodium 50 ml @ 100 mls/hr DAILY@09 IV 02/23/25 09:00 02/23/25 09:48 100 MLS/HR Diagnostic Test (Pha) 1 strip ACHS 02/23/25 11:30 Insulin Human Regular ACHS SC 02/23/25 11:30 Dextrose 50 ml UD PRN IV 02/23/25 08:00 Tamsulosin HCl 0.4 mg QPM PO 02/23/25 18:00 Lisinopril 2.5 mg DAILY PO 02/23/25 10:00 02/23/25 10:42 2.5 MG Memantine 10 mg DAILY PO 02/23/25 10:00 02/23/25 10:42 10 MG Mirtazapine 15 mg HS PO 02/23/25 22:00 Furosemide 40 mg DAILY IV 02/23/25 10:00 02/23/25 10:42 40 MG Diltiazem HCl 30 mg Q8HR PO 02/23/25 14:00 Atorvastatin Calcium 20 mg HS PO 02/23/25 22:00 Examination: GENERAL:Normal, HEENT:Normal, NECK:Normal, LUNGS:Normal, CVS:Normal, ABDOMEN:Normal, MSK:Normal, SKIN:Normal, NEURO:Normal, :Normal laboratory and microbiology Laboratory Tests 02/23/25 02:10 Test 02/23/25 02:10 Range/Units Serum Glucose 148 H 74-106 mg/dL Problem List/Assessment/Plan Problem List/Assessment/Plan #1 encephalopathy-metabolic #2 hypoglycemia: monitor #3 dm #4htn #5 obesity #6 cad s/p ptca #7 a fib #8 hyperlipidemia #9 ckd stage 3 unstable for transfer advance care planning- full code- time spent 19 mins Plan discussed with: Patient My Orders My Orders Orders - DANIEL MACHADO MD Procedure Category Date Status Time Basic Metabolic Panel LAB 02/24/25 Verified 06:00 Complete Blood Count LAB 02/24/25 Verified 06:00 Chest Portable XY 02/24/25 Verified 06:00 Date of Service: Feb 23, 2025 Billing Provider: DANIEL MACHADO MD Common Visit Codes: [id number] INP/OBS CARE(HIGH) Secondary Visit Codes: [id number] CARE PLAN 30 MINUTES DANIEL MACHADO MD Feb 23, 2025 11:33
[2025-02-23] MEDS: InsuLIN REG 1unit/0.01ml Soln (100units/ml) SC SCH (11:44)
[2025-02-23] MEDS: ACCU-CHEK COMFORT CURVE STRIP VI SCH (11:44)
[2025-02-23 11:50] VITALS: PULSE 79; RESP 14; O2SAT 94
[2025-02-23 13:31] LABS: COVID19 ANTIGEN SOFIA FIA NEGATIVE (NEGATIVE)
--- NOTE | 2025-02-23 14:06 | ECG ---
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
--- NOTE | 2025-02-23 14:14 | DVHDS2 ---
Discharge Summary Date of Admission Feb 23, 2025 at 07:48 Date of Discharge: Feb 23, 2025 Labs/Diagnostic Data: Laboratory Results Test 02/23/25 11:49 02/23/25 11:43 02/23/25 08:36 02/23/25 08:34 Influenza Type A Antigen Negative (Negative) Influenza Type B Antigen Negative (Negative) SARS-CoV-2 Antigen (Rapid) Negative (NEGATIVE) POC Glucose 109 mg/dl (70-106) Erythrocyte Sedimentation Rate 12 mm/hr (0-20) Hemoglobin A1c 6.7 % A1C (<5.7) B-Type Natriuretic Peptide 137.47 pg/mL (0-100) Lactic Acid Level 1.5 mmol/L (0.4-2.0) Ammonia 29 umol/L (11-32) C-Reactive Protein High Sensitivity 0.26 mg/dL (<1.0) Test 02/23/25 02:43 02/23/25 02:10 Urine Color Light-yellow (Yellow) Urine Clarity Clear (Clear) Urine pH 6.0 (5.0-9.0) Urine Specific [place] 1.012 (1.001-1.035) Urine Protein Negative (Negative) Urine Ketones Negative (Negative) Urine Blood Negative /uL (Negative) Urine Nitrite Negative (Negative) Urine Bilirubin Negative (Negative) Urine Urobilinogen Normal mg/dL (Negative) Urine Leukocyte Esterase Negative /uL (Negative) Urine RBC 1 /hpf (0 - 3) Urine Microscopic WBC < 1 /HPF (0-3) Urine Squamous Epithelial Cells Few /hpf (<5) Urine Bacteria None seen /hpf (None Seen) Urine Glucose Normal mg/dL (Normal) Urine Opiates Screen Neg (NEGATIVE) Urine Fentanyl Screen Neg (NEGATIVE) Urine Barbiturates Screen Neg (NEGATIVE) Urine Phencyclidine Screen Neg (NEGATIVE) Urine Amphetamines Screen Neg (NEGATIVE) Urine Benzodiazepines Screen Neg (NEGATIVE) Urine Cocaine Screen Neg (NEGATIVE) Urine Cannabinoids Screen Neg (NEGATIVE) White Blood Count 6.6 10^3/uL (4.4-10.8) Red Blood Count 4.42 10^6/uL (4.5-5.90) Hemoglobin 14.0 g/dL (13.5-17.5) Hematocrit 41.5 % (41.0-53.0) Mean Corpuscular Volume 93.8 fL (80.0-100.0) Mean Corpuscular Hemoglobin 31.6 pg (28.0-32.0) Mean Corpuscular Hemoglobin Concent 33.6 g/dL (32.0-36.0) Red Cell Distribution Width 13.9 % (11.8-14.3) Platelet Count 176 10^3/uL (140-450) Mean Platelet Volume 9.2 fL (6.9-10.8) Neutrophils (%) (Auto) 64.3 % (37.0-80.0) Lymphocytes (%) (Auto) 26.3 % (10.0-50.0) Monocytes (%) (Auto) 7.1 % (0.0-12.0) Eosinophils (%) (Auto) 1.3 % (0.0-7.0) Basophils (%) (Auto) 1.0 % (0.0-2.0) Neutrophils # (Auto) 4.2 10 ^3/uL (1.6-8.6) Lymphocytes # (Auto) 1.7 10 ^3/uL (0.4-5.4) Monocytes # (Auto) 0.5 10 ^3/uL (0-1.3) Eosinophils # (Auto) 0.1 10 ^3/uL (0-0.8) Basophils # (Auto) 0.1 10 ^3/uL (0-0.2) Nucleated Red Blood Cells 0.1 % Sodium Level 143 mmol/L (136-145) Potassium Level 3.5 mmol/L (3.5-5.1) Chloride Level 105 mmol/L (98-107) Carbon Dioxide Level 29 mmol/L (20-31) Anion Gap 9 (5-15) Blood Urea Nitrogen 17 mg/dL (9-23) Creatinine 1.40 mg/dL (0.700-1.30) Glomerular Filtration Rate Calc 51 mL/min (>90) BUN/Creatinine Ratio 12.1 (10.0-20.0) Serum Glucose 148 mg/dL (74-106) Calcium Level 8.3 mg/dL (8.7-10.4) Magnesium Level 2.2 mg/dL (1.6-2.6) Total Bilirubin 0.3 mg/dL (0.2-1.0) Aspartate Amino Transferase (AST) 33 U/L (13-40) Alanine Aminotransferase (ALT) 15 U/L (7-40) Alkaline Phosphatase 65 U/L (46-116) Total Protein 6.7 g/dL (5.7-8.2) Albumin 3.9 g/dL (3.2-4.8) Plasma/Serum Blood Alcohol < 3.0 mg/dL (<10) Other Laboratory Tests 02/23/25 02:10 Brief Hx & Hospital Course: SEE DICTATED NOTE Condition at Discharge: Fair Final Diagnosis/Problems List ALOC Discharge Disposition: Acute Care Facility Discharge Instruct/Medications Diet: Cardiac 2g Na,low cholest Activity: No Restrictions, As Tolerated Follow Up/Referral: FU WITH [facility] Medications: PER JUL Scheduled Atorvastatin Calcium (Atorvastatin Calcium), 1 TAB PO DAILY, (Reported) Lisinopril (Lisinopril), 1 TAB PO DAILY, (Reported) Memantine Hydrochloride (Memantine HCl), 1 TAB PO DAILY, (Reported) Miscellaneous Medications Bisoprolol Fumarate (Bisoprolol Fumarate), TAB PO, (Reported) Diltiazem Hcl (Diltiazem Hcl), TAB PO, (Reported) Mirtazapine (Mirtazapine Oral Disintegrating Tablet), 1 TAB PO, (Reported) Tamsulosin Hcl (Tamsulosin Hcl), CAP PO, (Reported) Discharge Statement: "Patient was advised to return to the ER or call 911 if any headaches, dizziness, shortness of breath, chest pain, abdominal pain, bleeding, fevers, or worsening of medical condition. Patient was counseled about treatment plan, medications, possible side effects, patientverbalized understanding. All questions were answered to the best of my ability. This discharge took greater then 30 minutes in planning, reviewing documentation, counseling the patient, and discussing with other team members." ASSESSMENT ASSESSMENT Assessment ALOC Date of Service: Feb 23, 2025 Billing Provider: DANIEL MACHADO MD Common Visit Codes: [id number]/OBS DISCH DAY >30min DANIEL MACHADO MD Feb 23, 2025 14:14
--- NOTE | 2025-02-23 14:23 | DVHDS ---
DATE OF DISCHARGE: 02/23/2025 TRANSFER SUMMARY HISTORY OF PRESENT ILLNESS: The patient is an 79-year-old gentleman who was admitted with history of altered level of consciousness, diaphoresis, and confusion. The patient was noted to have a low blood sugar of 37 by EMS. He has previous history of hypertension, diabetes, AFib, coronary artery disease, and hyperlipidemia. HOSPITAL COURSE: The patient had a CT of the head that showed no acute abnormality. The patient had a chest x-ray that showed evidence of cardiomegaly. His influenza and COVID test were negative. The patient's creatinine was 1.4. The patient will now be transferred to [facility] as per family request. FINAL DIAGNOSES: Therefore: * Encephalopathy, metabolic. * Hypoglycemia. * Diabetes mellitus. * Hypertension. * Obesity. * Coronary artery disease with history of PTCA. * Atrial fibrillation. * Hyperlipidemia. * CKD stage 3. Time spent in discharge planning and review of plan with the patient and family at bedside was 39 minutes. MD MASOUD Burton/EKT TID: [id number] RECEIPT: [id number]
--- NOTE | 2025-02-23 17:49 | ECG ---
[facility] Test Date: 2025-02-23 Test Time: 17:44:11 Pat Name: GRACE CORTEZ Department: [facility] ED Room: [address] [place] [address] Gender: M [employer]crete F[employer] Builder: zen : 1945 Requested By: DANITZA HAGER Order Number: [id number] Reading MD: Norbert Castle Measurements Intervals [place] Rate: 126 P: 0 ME: 0 QRS: -74 QRSD: 106 T: 45 QT: 357 QTc: 517 Interpretive Statements Atrial fibrillation Left anterior fascicular block Low voltage, precordial leads Consider anterior infarct Prolonged QT interval Electronically Signed On 02-24-2025 22:18:53 PDT by Norbert Castle Please click the below link to view image of tracing.
[2025-02-23] MEDS: TAMSULOSIN HYDROCHLORIDE 0.4 MG CAP PO SCH (18:25)
[2025-02-23] MEDS: METOPROLOL TARTRATE 50 MG TAB PO SCH (20:15)
[2025-02-23 20:20] VITALS: BP 127/96; PULSE 103; RESP 15; TEMP 98.4; O2SAT 97
[2025-02-23] MEDS ORDERED: MIRTAZAPINE 30 MG TAB PO SCH (22:00)
== END 2025-02-23 20:57 | disposition short-term general hospital (02) | DRG 637 ==
LOC: EDBD 01:48 → ER 01:48 → OVERFLOW 07:48
PROVIDERS: ADMIT Internal Medicine; ATTEND Internal Medicine
DX: E11.649 Type 2 diabetes mellitus with hypoglycemia without coma (principal); G93.41 Metabolic encephalopathy; N17.9 Acute kidney failure, unspecified; E11.22 Type 2 diabetes mellitus with diabetic chronic kidney disease; I48.91 Unspecified atrial fibrillation; N18.30 Chronic kidney disease, stage 3 unspecified; I25.10 Atherosclerotic heart disease of native coronary artery without angina pectoris; E66.9 Obesity, unspecified; E78.5 Hyperlipidemia, unspecified; I12.9 Hypertensive chronic kidney disease with stage 1 through stage 4 chronic kidney disease, or unspecified chronic kidney disease; K21.9 Gastro-esophageal reflux disease without esophagitis; Z98.61 Coronary angioplasty status; Z79.899 Other long term (current) drug therapy; Z68.38 Body mass index [BMI] 38.0-38.9, adult
CPT/HCPCS: 36415; 70450; 71045; 80053; 80307; 80320; 81001; 82140; 82962; 83036; 83605; 83735; 83880; 85025; 85652; 86141; 87426; 87804; 93005; 96365; 99291; G0378; J1815